=== PATIENT | female | born 1990 | race Caucasian/White ===

== ENCOUNTER 2017-01-05 17:38 | Emergency (ER) | payer OTHER ==
[2017-01-05 18:07] VITALS: RESP 18; TEMP 98.3
[2017-01-05] MEDS ORDERED: ONDANSETRON 4 MG ODT BU ONE (19:43)
[2017-01-05] MEDS ORDERED: ONDANSETRON 4 MG ODT ONE (19:49)
[2017-01-05 21:20] VITALS: BP 120/77; PULSE 84; O2SAT 99
== END 2017-01-05 19:55 | disposition home or self-care (01) | DRG 950 ==
LOC: ED 17:38
DX: S09.90XD Unspecified injury of head, subsequent encounter (principal); M25.532 Pain in left wrist; V89.2XXD Person injured in unspecified motor-vehicle accident, traffic, subsequent encounter; M54.2 Cervicalgia; M54.9 Dorsalgia, unspecified; R11.2 Nausea with vomiting, unspecified; R42 Dizziness and giddiness
CPT/HCPCS: 70450; 99284